=== PATIENT | female | born 1970 | race Caucasian/White ===

== ENCOUNTER → 2019-08-21 | Outpatient (CLI) | payer OTHER | END | disposition home or self-care (01) | LOC: CARD 12:43 | PROVIDERS: ATTEND Nurse Practitioner | DX: R06.02 Shortness of breath (principal); G47.33 Obstructive sleep apnea (adult) (pediatric); E66.9 Obesity, unspecified; E11.9 Type 2 diabetes mellitus without complications | CPT/HCPCS: 94060; 94726; 94729 ==

== ENCOUNTER → 2020-02-13 | Outpatient (CLI) | payer OTHER | END | disposition home or self-care (01) | LOC: STAR 13:15 | PROVIDERS: ATTEND Anesthesiology | DX: Z01.812 Encounter for preprocedural laboratory examination (principal); Z20.828 Contact with and (suspected) exposure to other viral communicable diseases | CPT/HCPCS: 36415; 87635 ==

== ENCOUNTER 2020-02-19 09:36 | Day surgery (SDC) | payer OTHER ==
[~2020-02-19] VITALS: Ht 160 cm; Wt 98.8 kg
[2020-02-19 09:54] VITALS: BP 122/65
[2020-02-19] MEDS ORDERED: LACTATED RINGERS 1,000 ML IV SCH (09:58)
[2020-02-19] MEDS ORDERED: CHLORHEXIDINE 15 ML UDC MM STA (09:59)
[2020-02-19] MEDS ORDERED: FEXO1TAB25 PO (10:30)
[2020-02-19] MEDS ORDERED: acyclovir (10:30)
[2020-02-19] MEDS ORDERED: METF850T10 PO (10:30)
[2020-02-19] MEDS ORDERED: SIMV40TA20 PO (10:30)
[2020-02-19] MEDS ORDERED: OMEP-110 PO (10:30)
[2020-02-19] MEDS ORDERED: NAPR-856 PO (10:30)
[2020-02-19 10:53] LABS: HCG UR SG 1.025 (1.003-1.030)
[2020-02-19] MEDS ORDERED: TEMPLATE NON-FORMULARY MED. (Fexofenadine/Pseudoephedrine (Allegra-D 12 Hour Tablet**) 1 T PO PRN (11:00)
[2020-02-19] MEDS ORDERED: FENTANYL PF 100 MCG/2ML ONE ×2 (12:27→14:57)
[2020-02-19] MEDS ORDERED: MIDAZOLAM 1 MG/ML, 2ML ONE (12:27)
[2020-02-19] MEDS ORDERED: BUPIVACAINE/PF 0.5% ONE (12:47)
[2020-02-19] MEDS ORDERED: EPINEPHRINE 1 MG/ML, 1ML ONE (12:48)
[2020-02-19] MEDS ORDERED: LIDOCAINE 1%-EPI 1:100K, 20ML ONE (12:49)
[2020-02-19] MEDS ORDERED: NEOSTIGMINE 1 MG/ML, 10ML ONE (13:50)
[2020-02-19] MEDS ORDERED: GLYCOPYRROLATE 0.2MG/1ML, 5ML ONE (13:50)
[2020-02-19] MEDS ORDERED: ROCURONIUM 10 MG/ML,10ML ONE (13:50)
[2020-02-19] MEDS ORDERED: PROMETHAZINE 25 MG/ML, 1ML IVPush PRN (15:00)
[2020-02-19] MEDS ORDERED: HYDROmorphone 1 MG/ML, 1ML INJ IVPush PRN (15:00)
[2020-02-19] MEDS ORDERED: ACETAMINOPHEN 325 MG TABLET PO PRN (15:00)
[2020-02-19] MEDS ORDERED: ALBUTEROL SULFATE 2.5 MG/3 ML NPPB PRN (15:00)
[2020-02-19] MEDS ORDERED: LABETALOL 5MG/ML, 20ML IV PRN (15:00)
[2020-02-19] MEDS ORDERED: MEPERIDINE/PF 25MG/0.5ML IVPush PRN (15:00)
[2020-02-19] MEDS ORDERED: LORazepam 2 MG/ML, 1ML IVPush PRN (15:00)
[2020-02-19] MEDS ORDERED: OXYcodone 5 MG/5 ML ORAL.SOL UDC PO PRN (15:00)
[2020-02-19] MEDS ORDERED: FENTANYL PF 100 MCG/2ML IV PRN (15:00)
[2020-02-19] MEDS ORDERED: hydrALAzine 20 MG/ML, 1ML IV PRN (15:00)
[2020-02-19] MEDS ORDERED: DEXAMETHASONE 4 MG/ML, 1ML ONE (15:17)
[2020-02-19] MEDS ORDERED: PROPOFOL 10 MG/ML, 20ML ONE (15:17)
[2020-02-19] MEDS ORDERED: CEFAZOLIN 1,000 MG ONE (15:17)
[2020-02-19] MEDS ORDERED: ONDANSETRON 2MG/ML, 2ML ONE (15:17)
[2020-02-19] MEDS ORDERED: SIMVASTATIN 40 MG TABLET PO SCH (21:00)
[2020-02-19] MEDS ORDERED: metFORMIN 850 MG TABLET PO SCH (21:00)
[2020-02-19] MEDS ORDERED: NAPROXEN 500 MG TABLET PO SCH (21:00)
[2020-02-20] MEDS ORDERED: OMEPRAZOLE 20 MG CAPSULE.DR PO SCH (07:30)
== END 2020-02-19 18:30 | disposition home or self-care (01) ==
LOC: OUT 09:36
PROVIDERS: ATTEND Orthopaedic Surgery
DX: M19.012 Primary osteoarthritis, left shoulder (principal); M75.102 Unspecified rotator cuff tear or rupture of left shoulder, not specified as traumatic; M75.32 Calcific tendinitis of left shoulder; M25.812 Other specified joint disorders, left shoulder; S43.432A Superior glenoid labrum lesion of left shoulder, initial encounter; M19.90 Unspecified osteoarthritis, unspecified site; K21.9 Gastro-esophageal reflux disease without esophagitis; E11.9 Type 2 diabetes mellitus without complications; G47.33 Obstructive sleep apnea (adult) (pediatric); E78.5 Hyperlipidemia, unspecified; E66.9 Obesity, unspecified; X58.XXXA Exposure to other specified factors, initial encounter; Y93.89 Activity, other specified; Y92.89 Other specified places as the place of occurrence of the external cause; Y99.8 Other external cause status; Z68.38 Body mass index [BMI] 38.0-38.9, adult; Z79.899 Other long term (current) drug therapy; Z98.890 Other specified postprocedural states
CPT/HCPCS: 29819; 29823; 29824; 29826; 64415; 73020; 76000; 81025; 82962; J0171; J0690; J1100; J2250; J2405; J2704; J2710; J3010; J3490; J7120